=== PATIENT | female | born 2000 | race Caucasian/White ===

== ENCOUNTER 2019-03-06 23:58 | Emergency (ER) | payer BC, OTHER ==
[2019-03-07] MEDS ORDERED: ONDANSETRON 4 MG/2 ML VIAL ONE ×2 (01:01→01:25)
[2019-03-07] MEDS ORDERED: NA CHLORIDE 0.9% 1,000 ML ONE ×2 (01:01→01:42)
[2019-03-07 01:05] LABS: Absolute Lymphocytes (CBC) 2.6 K/uL (0.7-4.9); Absolute Monocytes 0.9 K/uL (0.1-1.3); Absolute Neutrophil 9.6 K/uL (1.8-8.0); Basophils % 0.3 % (0-1.3); Eosinophils % 0.1 % (0-4.4); Hematocrit 41.6 % (36.0-45.0); Lymphocytes % 19.7 % (15.3-44.8); MPV 9.1 fL (7.6-11.3); Monocytes % 6.7 % (3.3-12.3)
[2019-03-07 01:24] LABS: ALT/SGPT 35 U/L (12-78); AST/SGOT 22 U/L (15-37); Albumin 3.9 g/dL (3.4-5.0); Alkaline Phosphatase 60 U/L (45-117); BUN Blood Urea Nitrogen 8 mg/dL (7-18); Bicarbonate 23 mmol/L (21-32); Bilirubin Direct 0.1 mg/dL (0-0.2); Bilirubin Total 0.5 mg/dL (0.2-1.0); Glucose Level 87 mg/dL (74-106); Lipase 81 U/L (73-393); Potassium 3.3 mmol/L (3.5-5.1); Protein, Total 7.8 g/dL (6.4-8.2); Sodium Level 142 mmol/L (136-145)
[2019-03-07] MEDS ORDERED: POTASSIUM CL SA 10 MEQ TAB PO ONE (01:50)
[2019-03-07] MEDS ORDERED: MAGNE/ALUM HYDROXD 30 ML UCUP ONE (02:42)
[2019-03-07] MEDS ORDERED: LIDOCAINE VISCOUS 2% SOLN 15 ML UDC ONE (02:42)
--- NOTE | 2019-03-07 03:11 | EDPHYS ---
Physician Documentation [facility] Name: Matthew Lala Age: 19 yrs Sex: Female : 2000 Arrival Date: 03/06/2019 Time: 23:58 Bed 19 Private MD: ED Physician Seun Lanier HPI: 03/07 02:58 This 19 yrs old Female presents to ER via Ambulatory with complaints of pkl Nausea/Vomiting. 03:00 The patient presents to the emergency department with nausea, vomiting. Onset: The pkl symptoms/episode began/occurred yesterday. Associated signs and symptoms: Pertinent positives: seeing spots in left eye. 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 - Social history:: Smoking status: Patient uses tobacco products, reports stop smoking 2 months ago. - Ebola Screening: : Patient negative for fever greater than or equal to 101.5 degrees Fahrenheit, and additional compatible Ebola Virus Disease symptoms. ROS: 03:00 ENT: Negative for injury, pain, and discharge. pkl 03:00 Eyes: Positive for seeing spots in left eye. 03:00 Neck: Negative for stiffness. 03:00 Cardiovascular: Negative for chest pain. 03:00 Respiratory: Negative for cough, shortness of breath. 03:00 Abdomen/GI: Positive for nausea and vomiting. 03:00 Back: Negative for acute changes. 03:00 : Negative for urinary symptoms. 03:00 MS/extremity: Negative for acute changes. 03:00 Skin: Negative for rash. 03:00 Neuro: Negative for altered mental status. Exam: 03:00 Head/Face: Normocephalic, atraumatic. pkl 03:00 Eyes: Periorbital structures: appear normal, Pupils: no acute changes, Conjunctiva: normal. 03:00 ENT: Exam is negative for acute changes. 03:00 Neck: Exam negative for acute changes. 03:00 Chest/axilla: Exam negative for acute changes. 03:00 Cardiovascular: Rate: normal, Rhythm: regular. 03:00 Respiratory: the patient does not display signs of respiratory distress, Respirations: normal, Breath sounds: are clear throughout. 03:00 Abdomen/GI: Exam negative for acute changes. 03:00 Back: Exam negative for acute changes. 03:00 : Exam negative for acute changes. 03:00 Musculoskeletal/extremity: Exam is negative for acute changes. 03:00 Skin: Exam negative for rash. 03:00 Neuro: Orientation: is normal, Mentation: is normal, Cranial nerves: grossly normal, Motor: is normal. Vital Signs: 00:22 BP 151 / 91; Pulse 97; Resp 18 S; Temp 98.3(O); Pulse Ox 98% on R/A; Weight 113.4 kg jd3 (R); Height 5 ft. 4 in. (162.56 cm) (R); Pain 4/10; 01:04 BP 142 / 97; Pulse 64; Resp 17 S; Pulse Ox 99% on R/A; jd3 02:35 BP 137 / 93; Pulse 64; Resp 16 S; Pulse Ox 100% on R/A; jd3 00:22 Body Mass Index 42.91 (113.40 kg, 162.56 cm) jd3 MDM: 00:13 Patient medically screened. pkl 03:00 Data reviewed: vital signs, nurses notes, lab test result(s), radiologic studies, CT pkl scan. ED course: Patient feeling better. Nausea and vomiting resolved. 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 Patient understood instructions. 03/07 00:29 Order name: Basic Metabolic Panel jd3 03/07 00:29 Order name: CBC with Diff; Complete Time: 01: jd3 03/07 00:29 Order name: Creatinine for Radiology; Complete Time: : jd3 03/07 00:29 Order name: Hepatic Function; Complete Time: : jd3 03/07 00:29 Order name: Lipase; Complete Time: jd3 03/07 00:41 Order name: Basic Metabolic Panel; Complete Time: 01: EDMS 03/07 01:33 Order name: CT Abd/Pelvis - W/Contrast pkl 03/07 00:29 Order name: IV Saline Lock; Complete Time: 00:28 jd3 03/07 00:29 Order name: Labs collected and sent; Complete Time: 00:43 jd3 Administered Medications: Discontinued: NS 0.9% 1000 ml IV at 125 ml/hr continuous 00:50 Drug: NS 0.9% 1000 ml Route: IV; Rate: 1000 ml; Site: right antecubital; jd3 03:20 Follow up: Response: No adverse reaction; IV Status: Completed infusion; IV Intake: jd3 1000ml 00:51 Drug: Zofran 4 mg Route: IVP; Site: right antecubital; jd3 01:33 Follow up: Response: No adverse reaction jd3 01:21 Drug: Zofran 4 mg Route: IVP; Site: right antecubital; jd3 02:08 Follow up: Response: No adverse reaction; Nausea is decreased jd3 01:33 Drug: NS 0.9% 1000 ml Route: IV; Rate: 125 ml/hr; Site: right antecubital; jd3 03:20 Follow up: Response: No adverse reaction; IV Status: Order to discontinue infusion; IV jd3 Intake: 250ml 01:39 Drug: K-Dur 40 mEq Route: PO; jd3 02:33 Follow up: Response: No adverse reaction jd3 02:33 Drug: GI Cocktail without - (Maalox Suspension 30 ml, Lidocaine Liquid 2 % 15 jd3 ml) Route: PO; 03:19 Follow up: Response: No adverse reaction jd3 Disposition: 03/07/19 03:09 Discharged to Home. Impression: Recurrent nausea/ vomiting ( Resolved ) Visual disturbance left eye. - Condition is Stable. - Prescriptions for Zofran 4 mg Oral Tablet - take 1 tablet by ORAL route every 12 hours As needed; 10 tablet. - Work release form, Medication Reconciliation Form, Thank You Letter, Antibiotic Education, Prescription Opioid Use form. - Follow up: Private Physician; When: 2 - 3 days; Reason: Re-evaluation by your physician. - Problem is new. - Symptoms are resolved. Signatures: Dispatcher [employer] EDNY Seun Lanier MD MD pkl Davies, Jonathon RN RN jd3 Corrections: (The following items were deleted from the chart) 01:27 00:43 Abdomen Acute Series+[email or web address] ordered. EDNY EDMS 03:21 03:09 03/07/2019 03:09 Discharged to Home. Impression: Recurrent nausea/ vomiting ( jd3 Resolved ) Visual disturbance left eye. Condition is Stable. Forms are Medication Reconciliation Form, Thank You Letter, Antibiotic Education, Prescription Opioid Use. Follow up: Private Physician; When: 2 - 3 days; Reason: Re-evaluation by your physician. Problem is new. Symptoms are resolved. pkl
--- NOTE | 2019-03-07 03:11 | ER ---
Nurse's Notes [facility] Name: Matthew Lala Age: 19 yrs Sex: Female : 2000 Arrival Date: 03/06/2019 Time: 23:58 Bed 19 Private MD: Diagnosis: Recurrent nausea/ vomiting ( Resolved ) Visual disturbance left eye Presentation: 03/07 00:17 Presenting complaint: Patient states: "I went out last night 03/05/19 and had 4 drink jd3 and then I started vomiting and haven't really stopped since.". Transition of care: patient was not received from another setting of care. Onset of symptoms was March 05, 2019. Risk Assessment: Do you want to hurt yourself or someone else? Patient reports no desire to harm self or others. Initial Sepsis Screen: Does the patient meet any 2 criteria? No. Patient's initial sepsis screen is negative. Does the patient have a suspected source of infection? No. Patient's initial sepsis screen is negative. Care prior to arrival: None. 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 - Social history:: Smoking status: Patient uses tobacco products, reports stop smoking 2 months ago. - Ebola Screening: : Patient negative for fever greater than or equal to 101.5 degrees Fahrenheit, and additional compatible Ebola Virus Disease symptoms. Screenin:24 Abuse screen: Denies threats or abuse. Nutritional screening: No deficits noted. jd3 Tuberculosis screening: No symptoms or risk factors identified. Fall Risk IV access (20 points). Ambulatory Aid- None/Bed Rest/Nurse Assist (0 pts). Gait- Normal/Bed Rest/Wheelchair (0 pts) Mental Status- Oriented to own ability (0 pts). Total Agudelo Fall Scale indicates No Risk (0-24 pts). Assessment: 00:23 General: Appears in no apparent distress. uncomfortable, Behavior is calm, cooperative, jd3 appropriate for age. Pain: Complains of pain in abdomen Quality of pain is described as aching. Neuro: Level of Consciousness is awake, alert, obeys commands, Oriented to person, place, time, situation, Appropriate for age. Cardiovascular: Capillary refill < 3 seconds Patient's skin is warm and dry. Respiratory: Airway is patent Respiratory effort is even, unlabored, Respiratory pattern is regular, symmetrical. GI: Abdomen is round non-distended, Bowel sounds present X 4 quads. Abd is soft X 4 quads Abdomen is tender to palpation in right upper quadrant and left upper quadrant Reports nausea, vomiting. : No signs and/or symptoms were reported regarding the genitourinary system. EENT: No signs and/or symptoms were reported regarding the EENT system. Derm: Skin is intact, Skin is dry, Skin is normal, Skin temperature is warm. Musculoskeletal: Circulation, motion, and sensation intact. Range of motion: intact in all extremities. 01:04 Reassessment: Patient appears in no apparent distress at this time. Patient and/or [facility] family updated on plan of care and expected duration. Pain level reassessed. Patient is alert, oriented x 3, equal unlabored respirations, skin warm/dry/pink. 01:27 Reassessment: pt reported seeing black dots out of the sides of her eyes, provider at [facility] bedside assessing pt. 02:35 Reassessment: Patient appears in no apparent distress at this time. Patient and/or [facility] family updated on plan of care and expected duration. Pain level reassessed. Patient is alert, oriented x 3, equal unlabored respirations, skin warm/dry/pink. 03:18 Reassessment: Patient appears in no apparent distress at this time. Patient and/or [facility] family updated on plan of care and expected duration. Pain level reassessed. Patient is alert, oriented x 3, equal unlabored respirations, skin warm/dry/pink. Vital Signs: 00:22 BP 151 / 91; Pulse 97; Resp 18 S; Temp 98.3(O); Pulse Ox 98% on R/A; Weight 113.4 kg jd3 (R); Height 5 ft. 4 in. (162.56 cm) (R); Pain 4/10; 01:04 BP 142 / 97; Pulse 64; Resp 17 S; Pulse Ox 99% on R/A; jd3 02:35 BP 137 / 93; Pulse 64; Resp 16 S; Pulse Ox 100% on R/A; jd3 00:22 Body Mass Index 42.91 (113.40 kg, 162.56 cm) jd3 ED Course: 03/06 23:58 Patient arrived in ED. am2 03/07 00:13 Seun Lanier MD is Attending Physician. pkl 00:16 Ayaz Hdez RN is Primary Nurse. jd3 00:18 Triage completed. jd3 00:22 Arm band placed on. jd3 00:23 Inserted saline lock: 20 gauge in right antecubital area, using aseptic technique. jd3 [address] by LAURA technical research scientist. 00:25 Patient has correct armband on for positive identification. Bed in low position. Call jd3 light in reach. Side rails up X 1. Adult w/ patient. 00:28 Warm blanket given. jd3 00:47 Radiology exam delayed due to test not completed at this time. sw 02:38 CT Abd/Pelvis - W/Contrast In Process Unspecified. EDMS 03:19 No provider procedures requiring assistance completed. IV discontinued, intact, jd3 bleeding controlled, No redness/swelling at site. Pressure dressing applied. Administered Medications: Discontinued: NS 0.9% 1000 ml IV at 125 ml/hr continuous 00:50 Drug: NS 0.9% 1000 ml Route: IV; Rate: 1000 ml; Site: right antecubital; jd3 03:20 Follow up: Response: No adverse reaction; IV Status: Completed infusion; IV Intake: jd3 1000ml 00:51 Drug: Zofran 4 mg Route: IVP; Site: right antecubital; jd3 01:33 Follow up: Response: No adverse reaction jd3 01:21 Drug: Zofran 4 mg Route: IVP; Site: right antecubital; jd3 02:08 Follow up: Response: No adverse reaction; Nausea is decreased jd3 01:33 Drug: NS 0.9% 1000 ml Route: IV; Rate: 125 ml/hr; Site: right antecubital; jd3 03:20 Follow up: Response: No adverse reaction; IV Status: Order to discontinue infusion; IV jd3 Intake: 250ml 01:39 Drug: K-Dur 40 mEq Route: PO; jd3 02:33 Follow up: Response: No adverse reaction jd3 02:33 Drug: GI Cocktail without - (Maalox Suspension 30 ml, Lidocaine Liquid 2 % 15 jd3 ml) Route: PO; 03:19 Follow up: Response: No adverse reaction jd3 Intake: 03:20 IV: 1000ml; Total: 1000ml. jd3 03:20 IV: 250ml; Total: 1250ml. jd3 Outcome: 03:09 Discharge ordered by . osvaldo 03:19 Discharged to home ambulatory. jd3 03:19 Condition: stable 03:19 Discharge instructions given to patient, family, Instructed on discharge instructions, follow up and referral plans. medication usage, Demonstrated understanding of instructions, follow-up care, medications, Prescriptions given X 1. 03:21 Patient left the ED. jd3 Signatures: Dispatcher [employer] EDMS Seun Lanier MD MD pkl Warren, Shannon sw Moreno, Amanda am2 Davies, Jonathon, RN RN jd3 Corrections: (The following items were deleted from the chart) 00:24 00:23 GI: Abdomen is round non-distended, Bowel sounds present X 4 quads. Abd is soft X jd3 4 quads Abdomen is tender to palpation in right upper quadrant and left upper quadrant jd3
--- NOTE | 2019-03-10 11:40 | RAD REPORT ---
EXAM DESCRIPTION: CT Abdomen and Pelvis With Intravenous Contrast CLINICAL HISTORY: The patient is 19 years old and is Female; recurrent vomiting TECHNIQUE: Axial computed tomography images of the abdomen and pelvis with intravenous contrast. S agittal and coronal reformatted images were created and reviewed. This CT exam was performed using one or more of the following dose reduction techniques: automated exposure control, adjustment of t he mA and/or kV according to patient size, and/or use of iterative reconstruction technique. COMPARISON: No relevant prior studies available. FINDINGS: LUNG BASES: Unremarkable. No mass. No consolidation. ABDOMEN: LIVER: The liver is mildly fatty. GALLBLADDER AND BILE DUCTS: Surgical clips are present in the right upper quadrant, consistent w ith previous cholecystectomy. PANCREAS: No ductal dilation. No mass. SPLEEN: Unremarkable. ADRENALS: Unremarkable. No mass. KIDNEYS AND URETERS: Unremarkable. No solid mass. No hydronephrosis. STOMACH AND BOWEL: The stomach is now well distended. Suggestion of 4 pills are noted within the distal gastric body. The small bowel is normal in caliber. A moderate amount stool is present throug hout the colon. There is no mucosal thickening or evidence of bowel obstruction. PELVIS: APPENDIX: The appendix is normal in caliber without surrounding inflammation. BLADDER: The bladder is not well distended. REPRODUCTIVE: Unremarkable as visualized. ABDOMEN and PELVIS: INTRAPERITONEAL SPACE: Unremarkable. No free air. No significant fluid collection. BONES/JOINTS: No acute fracture. SOFT TISSUES: The soft tissues are normal. VASCULATURE: Unremarkable. No abdominal aortic aneurysm. LYMPH NODES: Unremarkable. No enlarged lymph nodes. IMPRESSION: No acute findings on this contrasted CT of the abdomen and pelvis to explain the patient 's symptoms. Electronically signed by: Phuong Croft MD 03/07/2019 2:39 AM CDT Due to temporary technical issues with the PACS/Fluency reporting system, reports are being signed by the in house radiologist as a courtesy to ensure prompt reporting. The interpreting radiologist is f quintenly responsible for the content of the report.
== END 2019-03-07 03:21 | disposition home or self-care (01) ==
LOC: ER 23:58
DX: R11.2 Nausea with vomiting, unspecified (principal); H53.9 Unspecified visual disturbance; Z87.891 Personal history of nicotine dependence; Z88.5 Allergy status to narcotic agent; Z88.8 Allergy status to other drugs, medicaments and biological substances
CPT/HCPCS: 36415; 74177; 80048; 80076; 83690; 85025; 96361; 96374; 99284; J2405; J7030; Q9967